=== PATIENT | female | born 1970 | race Hispanic/Latino ===

== ENCOUNTER 2016-12-07 04:58 | Emergency (ER) | payer MEDICAID ==
[2016-12-07 06:57] LABS: Urine Drugs of Abuse Note Disclamer
[2016-12-07 07:10] LABS: Bilirubin,Urine NEG (Negative); Blood,Urine SM (Negative); Ketones,Urine NEG (Negative); Leukocyte Esterase,Urine NEG (Negative); Mucus,Urine FEW /HPF; Nitrite,Urine NEG (Negative); Protein,Urine <15 mg/dL mg/dL (Negative); Urobilinogen,Urine < 2.0 mg/dL (<2.0)
[2016-12-07 07:23] LABS: Basophils % (Auto) 1.3 % (0.0-1.8); Eosinophils % (Auto) 2.5 % (0.0-4.3); Hematocrit 39.8 % (30.3-42.9); Hemoglobin 13.7 gm/dl (10.1-14.3); Mean Corpuscular HGB Conc 34 % (30-34); Mean Corpuscular Hemoglobin 29 pg (28-32); Mean Corpuscular Volume 85 fl (79-97); Platelet Count 315 K/mm3 (140-440); Red Blood Count 4.71 M/mm3 (3.65-5.03); Red Cell Distribution Width 16.5 % (13.2-15.2); White Blood Count 7.8 K/mm3 (4.5-11.0)
[2016-12-07 07:36] LABS: Anion Gap 16 mmol/L; BUN/Creatinine Ratio 16.66; Blood Urea Nitrogen 10 mg/dL (7-17); Calcium 9.3 mg/dL (8.4-10.2); Carbon Dioxide 25 mmol/L (22-30); Chloride 101.9 mmol/L (98-107); Glucose 96 mg/dL (65-100); Sodium 139 mmol/L (137-145)
[2016-12-07] MEDS ORDERED: ZOFRAN ODT PO ONE (16:12)
--- NOTE | 2016-12-07 16:20 | Emergency Department Report ---
HPI - General Chief Complaint: Psych Time Seen by Provider: 12/07/16 16:06 - HPI HPI: Room 4 The patient is a 46-year-old female presenting with a chief complaint substance abuse. The patient says she has a history of abusing amphetamines and opiates comes to the ED because she desires to enter program for detox. The patient states the drugs are constantly in her home so the temptation is always there. The patient states she feels "rough" right now which includes nausea and diaphoresis secondary to not using her drugs of choice. Patient does not supply any further complaints Location: Mental state Duration: [see above] Quality: [see above] Severity:. Moderate Modifying factors: [see above] Context: [see above] Mode of transportation: Unknown ED Past Medical Hx - Past Medical History Hx Headaches / Migraines: Yes Hx Seizures: Yes Hx Psychiatric Treatment: Yes (panic) Additional medical history: seizures, Gout - Surgical History Past Surgical History?: No Additional Surgical History: tubal ligation,left carpel tunnel surgery, 2-C- sections - Family History Family history: no significant - Social History Smoking Status: Current Every Day Smoker Substance Use Type: Marijuana, Methamphetamines, Other (opiates) - Medications Home Medications: Home Medications Medication Instructions Recorded Confirmed Last Taken Type No Known Home Medications [No 12/07/16 12/07/16 Unknown History Reported Home Medications] ED Review of Systems ROS: Stated complaint: MENTAL HEALTH ISSUE Other details as noted in HPI Comment: All other systems reviewed and negative Constitutional: diaphoresis Eyes: denies: eye pain, eye discharge, vision change ENT: denies: ear pain, throat pain Respiratory: denies: cough, shortness of breath, wheezing Cardiovascular: denies: chest pain, palpitations Endocrine: no symptoms reported Gastrointestinal: nausea Genitourinary: denies: urgency, dysuria, discharge Musculoskeletal: denies: back pain, joint swelling, arthralgia Skin: denies: rash, lesions Neurological: denies: headache, weakness, paresthesias Psychiatric: denies: anxiety, depression Hematological/Lymphatic: denies: easy bleeding, easy bruising Physical Exam - Physical Exam Vital Signs: Vital Signs 12/07/16 06:38 Temperature 98.4 F Pulse Rate 72 Respiratory 16 Rate Blood Pressure 131/86 Blood Pressure 131/86 [Left] O2 Sat by Pulse 100 Oximetry Physical Exam: GENERAL: The patient is well-developed well-nourished female sitting on stretcher eating pizza not appear to be in acute distress. [] HEENT: Normocephalic. Atraumatic. Extraocular motions are intact. Patient has moist mucous membranes. NECK: Supple. Trachea midline CHEST/LUNGS: Clear to auscultation. There is no respiratory distress noted. HEART/CARDIOVASCULAR: Regular. There is no tachycardia. There is no gallop rub or murmur. ABDOMEN: Abdomen is soft, nontender. Patient has normal bowel sounds. There is no abdominal distention. SKIN: There is no rash. There is no edema. There is no diaphoresis. NEURO: The patient is awake, alert, and oriented. The patient is cooperative. The patient has normal speech MUSCULOSKELETAL: There is no evidence of acute injury. ED Course Vital Signs 12/07/16 06:38 Temperature 98.4 F Pulse Rate 72 Respiratory 16 Rate Blood Pressure 131/86 Blood Pressure 131/86 [Left] O2 Sat by Pulse 100 Oximetry - Consultations Consultation #1: 12/07/16 16:33 Case discussed with mental health executive search consultant (Hoda)-states the patient admits to homicidal ideation towards the people in her home. The patient subsequently is being placed on a 1013 ED Medical Decision Making - Lab Data Result diagrams: 12/07/16 06:58 12/07/16 06:58 Laboratory Tests 12/07/16 12/07/16 12/07/16 06:48 06:56 06:58 WBC RBC Hgb Hct MCV MCH MCHC RDW Plt Count Lymph % (Auto) [place] % (Auto) Eos % (Auto) Baso % (Auto) Lymph # [place] # Eos # Baso # Seg Neutrophils % Seg Neutrophils # Sodium 139 Potassium 4.0 Chloride 101.9 Carbon Dioxide 25 Anion Gap 16 BUN 10 Creatinine 0.6 L Estimated GFR > 60 BUN/Creatinine Ratio 16.66 Glucose 96 Calcium 9.3 HCG, Qual Urine Color Yellow Urine Turbidity Clear Urine pH 6.0 Ur Specific [place] 1.014 Urine Protein <15 mg/dl Urine Glucose (UA) Neg Urine Ketones Neg Urine Blood Sm Urine Nitrite Neg Urine Bilirubin Neg Urine Urobilinogen < 2.0 Ur Leukocyte Esterase Neg Urine WBC (Auto) 4.0 Urine RBC (Auto) 2.0 U Epithel Cells (Auto) 2.0 Urine Mucus Few Urine Opiates Screen Presumptive negative Urine Methadone Screen Presumptive negative Ur Barbiturates Screen Presumptive negative Ur Phencyclidine Scrn Presumptive negative Ur Amphetamines Screen Presumptive positive U Benzodiazepines Scrn Presumptive negative Urine Cocaine Screen Presumptive negative U Marijuana (THC) Screen Presumptive positive Drugs of Abuse Note Disclamer Plasma/Serum Alcohol 12/07/16 12/07/16 12/07/16 06:58 06:58 06:58 WBC 7.8 RBC 4.71 Hgb 13.7 Hct 39.8 MCV 85 MCH 29 MCHC 34 RDW 16.5 H Plt Count 315 Lymph % (Auto) 39.1 H [place] % (Auto) 11.8 H Eos % (Auto) 2.5 Baso % (Auto) 1.3 Lymph # 3.0 [place] # 0.9 H Eos # 0.2 Baso # 0.1 Seg Neutrophils % 45.3 Seg Neutrophils # 3.5 Sodium Potassium Chloride Carbon Dioxide Anion Gap BUN Creatinine Estimated GFR BUN/Creatinine Ratio Glucose Calcium HCG, Qual Negative Urine Color Urine Turbidity Urine pH Ur Specific [place] Urine Protein Urine Glucose (UA) Urine Ketones Urine Blood Urine Nitrite Urine Bilirubin Urine Urobilinogen Ur Leukocyte Esterase Urine WBC (Auto) Urine RBC (Auto) U Epithel Cells (Auto) Urine Mucus Urine Opiates Screen Urine Methadone Screen Ur Barbiturates Screen Ur Phencyclidine Scrn Ur Amphetamines Screen U Benzodiazepines Scrn Urine Cocaine Screen U Marijuana (THC) Screen Drugs of Abuse Note Plasma/Serum Alcohol < 0.01 - Differential Diagnosis polysubstance abuse Critical care attestation.: If time is entered above; I have spent that time in minutes in the direct care of this critically ill patient, excluding procedure time. ED Disposition Clinical Impression: Polysubstance abuse, Homicidal ideation Disposition: [id number]/TX-[id number] PSY HOSP/PSY UNIT Is pt being admited?: No Does the pt Need Aspirin: No Condition: Serious Referrals: PRIMARY CARE, [Primary Care Provider] - 3-5 Days Time of Disposition: 16:20 (awaiting placement)
[2016-12-08 20:43] VITALS: BP 122/78
== END 2016-12-08 20:30 ==
LOC: ED 04:58 → EEVIPCON 04:58 → ED 12-08 20:30
DX: F15.10 Other stimulant abuse, uncomplicated (principal); R45.850 Homicidal ideations
CPT/HCPCS: 36415; 80048; 80307; 81001; 84703; 85025; 99285; G0480; 80320; Q0162